=== PATIENT | male | born 1960 | race Caucasian/White ===

== ENCOUNTER 2019-11-11 08:26 | Outpatient (CLI) | payer OTHER, SELFPAY ==
--- NOTE | 2019-11-11 08:38 | XR_ITS ---
WS: [id number] CHEST 2 VIEWS HISTORY: ECCHYMOSIS, RIGHT SIDED RIB Pain, bronchitis COMPARISON: 03/12/2010 Lungs: Pulmonary hyperexpansion with interstitial thickening. No pulmonary mass or nodule. Interstiti al thickening is more prominent at the lung bases and posteriorly. Cardiac size: Normal. Mediastinum/Aorta: Normal mediastinum. Bones: Normal. XR/XR chest 2V* [id number] IMPRESSION: 1. Interstitial thickening in the lower lung lutz. Progressed since 0. Findings may represent a mild progression of pulmonary fibrosis or be second ami to edema and pneumonitis. 2. Emphysema.
--- NOTE | 2019-11-11 08:38 | XR_ITS ---
WS: [id number] ABDOMEN 1 VIEW(S) HISTORY: Ecchymosis with right-sided rib pain and bronchitis. COMPARISON: None available. Moderate fecal retention throughout the colon. No obstructive pattern is identified. No suspicious calcifications or masses. Thoracolumbar scoliosis. Prior RIGHT hip arthroplasty. XR/XR abdomen 1V* [id number] IMPRESSION: Moderate constipation. No acute injuries.
== END 2019-11-11 08:27 | disposition home or self-care (01) ==
PROVIDERS: Family Provider Family Medicine; PCP Family Medicine; Visit Provider Electrodiagnostic Medicine
DX: J43.9 Emphysema, unspecified (principal); K59.00 Constipation, unspecified
CPT/HCPCS: 71046; 74018

== ENCOUNTER 2020-06-10 13:12 | Outpatient (CLI) | payer OTHER, SELFPAY ==
--- NOTE | 2020-06-10 13:19 | USCV_ITS ---
Naun Ross Age: 60 Gender: M : 1960 Exam Date: 06/10/2020 13:17 Ordering Phys: Vishnu Huynh MD Technologist: Pascual Foreman Exam Location: [facility] – [place] Indication: RT LEG PAIN AND SWELLING HISTORY: HX OF DVT AND PE PROCEDURES: Venous duplex imaging was performed in only the right lower extremity. In addition, the posterior tibial and peroneal trunk were evaluated. FINDINGS: OCCLUDING DVT IN RT CFV, FV , POP AND PERINEAL TRUNK. THOMUS ALSO IN GSAPH. 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
== END 2020-06-10 13:13 | disposition home or self-care (01) ==
LOC: RAD 13:15
PROVIDERS: PCP Family Medicine; Visit Provider Family Medicine
DX: M79.604 Pain in right leg (principal); M79.89 Other specified soft tissue disorders; I82.411 Acute embolism and thrombosis of right femoral vein; I82.431 Acute embolism and thrombosis of right popliteal vein; I82.451 Acute embolism and thrombosis of right peroneal vein
CPT/HCPCS: 93971

== ENCOUNTER → 2022-11-06 12:13 | Outpatient (BNVA) | payer OTHER, SELFPAY | PROVIDERS: PCP Family Medicine; Visit Provider Family Medicine | DX: Z00.00 Encounter for general adult medical examination without abnormal findings (principal); I82.409 Acute embolism and thrombosis of unspecified deep veins of unspecified lower extremity; Z79.01 Long term (current) use of anticoagulants; R53.83 Other fatigue; J32.9 Chronic sinusitis, unspecified | CPT/HCPCS: 80053; 80061; 84443; 85025 ==

== ENCOUNTER 2023-03-01 11:56 | Outpatient (CLI) | payer OTHER, SELFPAY ==
--- NOTE | 2023-03-01 12:12 | CT_ITS ---
WS: [id number] CT CHEST CT-HIGH RESOLUTION, NONCONTRAST. HISTORY: Interstitial lung disease. Technique: High-resolution chest CT is performed in inspiration, expiration, supine and prone positio sarah. All CT scans at [facility] use at least one of these dose optimization techniques: automated exposure control; mA and/or kV adjustment per patient size (includes targeted exams where dose is mat ched to clinical indication); or iterative reconstruction. DLP: 1823.70 mGy.cm COMPARISON: 03/12/2010, chest radiograph 02/07/2023 Findings: Mild pulmonary hyperexpansion. Chronic emphysema with changes of paraseptal and centrilobul ar emphysema. Single roll of subpleural cysts most consistent with paraseptal emphysema. No lower lob e bronchiectasis or honeycombing. There is a subsolid mass at the LEFT lung base measuring 3.6 x 2.2 cm with irregular margins. Mild dependent changes at the RIGHT lung base. No air trapping. No mosaic attenuation. During prone positioning the subsolid mass at the LEFT lung base does not change configu ration. No mediastinal or hilar adenopathy. Mild cardiomegaly. No adrenal mass. 1.5 cm hepatic cyst. Small hi atal hernia. CT/CT chest wo con [id number] Impression: 1. No evidence for pulmonary fibrosis. 2. Centrilobular and paraseptal emphysema. 3. Subsolid, subpleural mass LEFT lung base measures 3.6 x 2.2 cm. Early pulmo nary neoplasm not excluded. Recommend follow-up PET/CT imaging. If PET CT imagi ng is not performed [address] follow-up should be obtained. 4. No bronchiectasis or honeycombing. No adenopathy.
== END 2023-03-01 11:57 | disposition home or self-care (01) ==
PROVIDERS: PCP Family Medicine; Visit Provider Family Medicine
DX: J84.9 Interstitial pulmonary disease, unspecified (principal); J43.8 Other emphysema; R91.8 Other nonspecific abnormal finding of lung field
CPT/HCPCS: 71250

== ENCOUNTER 2023-03-05 10:56 | Outpatient (CLI) | payer OTHER, SELFPAY | END 2023-03-05 10:57 | disposition home or self-care (01) | PROVIDERS: PCP Family Medicine; Visit Provider Family Medicine | DX: J45.909 Unspecified asthma, uncomplicated (principal) | CPT/HCPCS: 94010; 94726; 94729 ==

== ENCOUNTER 2023-04-06 06:22 | Outpatient (CLI) | payer OTHER, SELFPAY ==
--- NOTE | 2023-04-06 | PETR_ITS ---
PROCEDURE INFORMATION: Exam: PET/CT Skull Base to Mid-thigh Exam date and time: 04/06/2023 11:20 AM Age: 63 years old Clinical indication: Condition or disease; Condition/disease: Lung nodule LABS AND CLINICAL REPORTS: Glucose: 104 mg/dl Treatment strategy for malignancy (PET staging): Initial Staging (PI) TECHNIQUE: Imaging protocol: Following at least four-hour fasting and following the injection of radiopharmaceutical, low dose CT images were obtained. Then, PET images were obtained. Attenuation corrected images were constructed using the CT scan. Fused images of PET and CT were reviewed. The standardized uptake values (SUV) reported below are maximum values within a region of interest, expressed in gm/ml. Exam includes orbital meatal line to mid-thigh. Radiopharmaceutical: 14.86 mCi F-18 FDG (Fluorodeoxyglucose), IV. Time of imaging post radiopharmaceutical administration: 1 hour Injection site: Right AC COMPARISON: CT chest wo con [id number] 03/01/2023 12:14 PM FINDINGS: Brain: Visualized brain has normal physiologic uptake. Salivary glands: Hypermetabolic soft tissue nodule in the left submandibular gland measuring roughly 1.4 cm has SUV max 4.4 (image 26). Pharynx: No abnormal uptake. Larynx: No abnormal uptake. Lungs, pleura and trachea: No substantial FDG uptake is appreciated within the left lower lobe area of consolidation, which appears fairly similar to 03/01/2023. Calcified granuloma in the right lung. Substantial paraseptal emphysema. Heart: Normal physiologic uptake. Mediastinal space: No abnormal uptake. Liver: Cyst in the left hepatic lobe. Gallbladder and bile ducts: No abnormal uptake. Pancreas: No abnormal uptake. Spleen: No abnormal uptake. Adrenal glands: No abnormal uptake. Kidneys and ureters: Probable tiny left renal hemorrhagic cyst. Stomach and bowel: No abnormal uptake. Vasculature: No abnormal uptake. Lymph nodes: No abnormal uptake. No lymphadenopathy in the head, neck, chest, abdomen, pelvis, and extremities. Bones/joints: Surgical anchor in the right humeral head. Right hip arthroplasty. Soft tissues: No abnormal uptake in the visualized head, neck, chest, abdomen, pelvis, and extremities. PET/PET skulltothigh INITIAL [id number] IMPRESSION: 1. Hypermetabolic soft tissue nodule in the left submandibular gland measuring roughly 1.4 cm is concerning for neoplasm of uncertain malignant potential. Recommend ENT consultation and CT neck with contrast. 2. No substantial FDG uptake is appreciated within the left lower lobe area of consolidation, which appears fairly similar to 03/01/2023.
== END 2023-04-06 06:23 | disposition home or self-care (01) ==
LOC: RAD 04-08 06:22
PROVIDERS: PCP Family Medicine; Visit Provider Family Medicine
DX: R91.1 Solitary pulmonary nodule (principal); D48.7 Neoplasm of uncertain behavior of other specified sites
CPT/HCPCS: 78815; A9552

== ENCOUNTER 2023-04-24 16:19 | Outpatient (CLI) | payer OTHER, SELFPAY ==
--- NOTE | 2023-04-24 16:32 | CTR_ITS ---
PROCEDURE INFORMATION: Exam: CT Neck With Contrast Exam date and time: 04/24/2023 5:04 PM Age: 63 years old Clinical indication: Mass, lump, or swelling in neck; Patient HX: Follow up to pet scan, left side lump since ; Additional info: Submandibular mass TECHNIQUE: Imaging protocol: Computed tomography of the neck with contrast. Radiation optimization: All CT scans at this facility use at least one of these dose optimization techniques: automated exposure control; mA and/or kV adjustment per patient size (includes targeted exams where dose is matched to clinical indication); or iterative reconstruction. Contrast material: OMNI 350; Contrast volume: 95 ml; Contrast route: INTRAVENOUS (IV); REPORTING DATA: Count of CT and Cardiac NM exams in prior 12 months: This patient has received 2 known CTs and 0 known cardiac nuclear medicine studies in the 12 months prior to the current study. COMPARISON: [facility] [id number] 04/06/2023 11:20 AM RADIATION DOSE METRICS: Total DLP (mGy-cm): 217.79 FINDINGS: Pharynx: Unremarkable. No significant tonsillar enlargement. Larynx: Unremarkable. Epiglottis is normal. Prevertebral and retropharyngeal spaces: Unremarkable. Salivary glands: Left submandibular gland 18 mm somewhat hyperdense area, best seen series 3, image 52, somewhat more prominent compared to prior PET-CT scan of uncertain etiology, consider tissue correlation as clinically indicated. Thyroid: Right thyroid 7.6 mm low-density nodule. Lymph nodes: Unremarkable. No lymphadenopathy. Trachea: Visualized trachea is unremarkable. Lungs: Biapical emphysematous changes in the visualized lung lutz. Bones/joints: Unremarkable. No acute fracture. Soft tissues: Unremarkable. No significant soft tissue swelling. CT/CT neck w con* [id number] IMPRESSION: 1. Left submandibular gland 18 mm somewhat hyperdense area, best seen series 3, image 52, somewhat more prominent compared to prior PET-CT scan of uncertain etiology, consider tissue correlation as clinically indicated. 2. Biapical emphysematous changes in the visualized lung lutz. 3. Right thyroid 7.6 mm low-density nodule. COMMENTS: Consistent with the [employer]'s Incidental Findings Committee white paper (J Am Crystal Radiol 2015): In patients aged 35 years and older with an incidental thyroid nodule equal to or greater than 1.[address], MRI or extrathyroidal US, further evaluation with dedicated thyroid US is recommended for patients with normal life expectancy and without comorbidities. For smaller nodules without suspicious features, no further evaluation or follow up is recommended.
[2023-04-24 17:04] LABS: Blood Urea Nitrogen 13 mg/dL (8-23); Glomerular Filtration Rate 67.6 mL/min (90-130)
[2023-04-24] MEDS: iohexol 350 mg/mL 500 mL Btl (per mL) IV (17:08)
== END 2023-04-24 16:20 | disposition home or self-care (01) ==
LOC: RAD 16:20
PROVIDERS: PCP Family Medicine; Visit Provider Family Medicine
DX: R22.1 Localized swelling, mass and lump, neck (principal); E04.1 Nontoxic single thyroid nodule
CPT/HCPCS: 70491; 82565; 84520; Q9967

== ENCOUNTER 2023-10-10 11:46 | Outpatient (CLI) | payer OTHER, SELFPAY ==
--- NOTE | 2023-10-10 12:00 | USCV_ITS ---
Naun Ross Age: 63 Gender: M : 1960 Exam Date: 10/10/2023 12:34 Ordering Phys: Jose Antonio Becerra MD Technologist: Antonella Cuello [place] [facility] [place]: unspecified a fib BP: 114 / 97 HR: 90 Rhythm: Atrial fibrillation Technical Quality: Adequate MEASUREMENTS (Male / Female) Normal Values 2D ECHO LV Diastolic Diameter PLAX 4.7 cm 4.2 - 5.9 / 3.9 - 5.3 cm LV Systolic Diameter PLAX 3.6 cm IVS Diastolic Thickness 1.5 cm 0.6 - 1.0 / 0.6 - 0.9 cm IVS Systolic Thickness 1.6 cm LVPW Diastolic Thickness 1.3 cm 0.6 - 1.0 / 0.6 - 0.9 cm LVPW Systolic Thickness 2.8 cm LV Ejection Fraction 2D Teich 48.2 % LV Ejection Fraction MOD 2C 45.2 % LV Ejection Fraction 2C AL 48.0 % LA Diameter 4.4 cm LA Width 4.4 cm LA Height 6.7 cm RA Width 4.7 cm RA Height 6.3 cm Aorta at Sinotubular Diameter 2.9 cm IVC Diameter 1.7 cm M-MODE Aortic Annulus Diameter 3.2 cm LA Ao Ratio MM 1.5 MV E Point Septal Separation 0.6 cm DOPPLER AV Peak Velocity 94.0 cm/s LVOT Peak Velocity 67.0 cm/s MV Peak Velocity 93.0 cm/s MV Area PHT 5.0 cm squared Mitral E to A Ratio 6.2 MV E' Velocity 52.5 cm/s Mitral E to MV E' Ratio 12.4 Mitral E to LV E' Lateral Ratio 11.7 Mitral E to LV E' Septal Ratio 13.5 TR Peak Velocity 63.0 cm/s TR Peak Gradient 1.6 mmHg Right Atrial Pressure 5.0 mmHg Pulmonary Artery Systolic Pressu 6.6 mmHg PV Peak Velocity 94.0 cm/s RV Acceleration Time 0.1 s RV Ejection Time 0.3 s RV AcT/ET 0.5 FINDINGS Left Ventricle Left ventricle is normal in size. LV systolic function is mildly reduced with EF of 40 to 45%. Mild global hypokinesis seen. Right Ventricle RV is hypokinetic. Right Atrium Dilated Left Atrium Dilated Mitral Valve Structurally normal mitral valve. Mild mitral regurgitation Aortic Valve Structurally normal aortic valve. No significant stenosis or regurgitation. Tricuspid Valve Mild tricuspid regurgitation. Insufficient TR jet to evaluate RVSP. Pulmonic Valve Not well-visualized Pericardium Normal Aorta Normal in size IVC Appears to be normal CONCLUSIONS Left ventricle is mildly hypokinetic with EF of 40 to 45%. RV is hypokinetic. Biatrial enlargement Mild mitral regurgitation Mild tricuspid regurgitation No comparison studies are available Aamir Johnson MD (Electronically Signed) Final Date: 17 October 2023 18:28 S
== END 2023-10-10 11:47 | disposition home or self-care (01) ==
LOC: RAD 11:48
PROVIDERS: PCP Family Medicine; Visit Provider Family Medicine
DX: I48.91 Unspecified atrial fibrillation (principal); I08.1 Rheumatic disorders of both mitral and tricuspid valves
CPT/HCPCS: 93306

== ENCOUNTER → 2024-01-09 12:11 | Outpatient (BNVA) | payer OTHER, SELFPAY | PROVIDERS: PCP Family Medicine; Referring Provider Family Medicine; Visit Provider Internal Medicine Cardiovascular Disease | DX: R07.9 Chest pain, unspecified (principal); R00.0 Tachycardia, unspecified | CPT/HCPCS: 93005 ==